=== PATIENT | male | born 1935 | race Caucasian/White ===

== ENCOUNTER 2018-01-06 19:16 | Emergency (ER) | payer MEDICARE, OTHER ==
[2018-01-06] MEDS ORDERED: LIDOCAINE 1%/EPINEPHRINE INJ 20 ML VIAL INJ ONE (19:43)
[2018-01-06] MEDS ORDERED: DIPH/PERTUSS(ACELL)/TETANUS VAC/PF 0.5 ML SYR (>=10YO) IM ONE (19:43)
--- NOTE | 2018-01-06 19:45 | ER Document Report ---
ED Medical Screen (RME) - General Chief Complaint: Fall Injury Stated Complaint: FALL Time Seen by Provider: 01/06/18 19:38 Notes: Patient is an 82-year-old male who tripped over his suitcase and hit the left side of his face and ear on a corner of the bed. He is on Plavix and a baby aspirin daily. Denies LOC. Tetanus is not UTD. PE: 3 cm linear laceration over left lateral eyebrow, EOMI, small left ear auricular hematoma I have greeted and performed a rapid initial assessment of this patient. A comprehensive ED assessment and evaluation of the patient, analysis of test results and completion of the medical decision making process will be conducted by additional ED providers. TRAVEL OUTSIDE OF THE [place] IN LAST 30 DAYS: No - Related Data Allergies/Adverse Reactions: No Known Allergies Allergy (Unverified 01/06/18 19:19) Physical Exam - Vital signs Vitals: Temp Pulse Resp BP Pulse Ox 98.1 F 66 16 151/93 H 96 01/06/18 19:33 01/06/18 19:33 01/06/18 19:33 01/06/18 19:33 01/06/18 19:33 Course - Vital Signs Vital signs: Temp Pulse Resp BP Pulse Ox 98.1 F 66 16 151/93 H 96 01/06/18 19:33 01/06/18 19:33 01/06/18 19:33 01/06/18 19:33 01/06/18 19:33 Doctor's Discharge - Discharge Referrals: MARGAUX VANESSA MD [Primary Care Provider] - Follow up as needed
--- NOTE | 2018-01-06 20:44 | RADIOLOGY REPORT (SQ) ---
EXAM DESCRIPTION: CT FACIAL AREA WITHOUT COMPLETED DATE/TIME: 01/06/2018 8:19 pm REASON FOR STUDY: fall, head and facial injury, on ASA and Plavix COMPARISON: None. TECHNIQUE: Noncontrasted images through the facial bones and orbits windowed for bone and soft tissu e. Additional coronal and sagittal reconstructed images reviewed. All images stored on PACS. All CT scanners at this facility use dose modulation, iterative reconstruction, and/or weight based d osing when appropriate to reduce radiation dose to as low as reasonably achievable (ALARA). [facility]: Dose Right [facility]: CareDose [facility]: Dose Right [facility]: Teradose 4D [facility]: Smart [employer] RADIATION DOSE: CT Rad equipment meets quality standard of care and radiation dose reduction techniq ues were employed. CTDIvol: 30.4 mGy. DLP: 566 mGy-cm. mGy. LIMITATIONS: None. FINDINGS: FACIAL BONES: No fracture or bone lesion. ORBITS: Intact. No fracture. Symmetric intact globes and retroorbital soft tissues. PARANASAL SINUSES: Chronic pansinusitis. SOFT TISSUES: Left periorbital hematoma. INFERIOR BRAIN: See separate report. OTHER: No other significant finding. IMPRESSION: No fracture. TECHNICAL DOCUMENTATION: JOB ID: [id number] Quality ID # [id number]: Final reports with documentation of one or more dose reduction techniques (e.g., Au tomated exposure control, adjustment of the mA and/or kV according to patient size, use of iterative reconstruction technique) 2010 [employer]- All Rights Reserved Reading location - IP/workstation name: [email or web address]
--- NOTE | 2018-01-06 20:45 | RADIOLOGY REPORT (SQ) ---
EXAM DESCRIPTION: CT HEAD WITHOUT COMPLETED DATE/TIME: 01/06/2018 8:20 pm REASON FOR STUDY: fall, head and facial injury, on ASA and Plavix COMPARISON: None. TECHNIQUE: Axial images acquired through the brain without intravenous contrast. Images reviewed wi th bone, brain and subdural windows. Additional sagittal and coronal reconstructions were generated. Images stored on PACS. All CT scanners at this facility use dose modulation, iterative reconstruction, and/or weight based d osing when appropriate to reduce radiation dose to as low as reasonably achievable (ALARA). [facility]: Dose Right [facility]: CareDose [facility]: Dose Right [facility]: Teradose 4D [facility]: Smart [employer] RADIATION DOSE: CT Rad equipment meets quality standard of care and radiation dose reduction techniq ues were employed. CTDIvol: 53.2 mGy. DLP: 937 mGy-cm. mGy. LIMITATIONS: None. FINDINGS: VENTRICLES: Prominent. CEREBRUM: No masses. No hemorrhage. No midline shift. Areas of low density in the white matter mos t likely due to chronic micro-vascular ischemic change. No evidence for acute infarction. CEREBELLUM: No masses. No hemorrhage. No alteration of density. No evidence for acute infarction. EXTRAAXIAL SPACES: Mild age-related involutional change. No fluid collections. No masses. ORBITS AND GLOBE: No intra- or extraconal masses. Normal contour of globe without masses. CALVARIUM: No fracture. PARANASAL SINUSES: See separate report. SOFT TISSUES: Left periorbital hematoma. OTHER: No other significant finding. IMPRESSION: No acute findings in the brain. EVIDENCE OF ACUTE STROKE: NO. TECHNICAL DOCUMENTATION: JOB ID: [id number] Quality ID # [id number]: Final reports with documentation of one or more dose reduction techniques (e.g., Au tomated exposure control, adjustment of the mA and/or kV according to patient size, use of iterative reconstruction technique) 2010 [employer]- All Rights Reserved Reading location - IP/workstation name: [email or web address]
--- NOTE | 2018-01-06 20:49 | ER Document Report ---
ED Fall - General Chief Complaint: Fall Injury Stated Complaint: FALL Time Seen by Provider: 01/06/18 19:38 Notes: Patient is an 82-year-old male that comes to the emergency department for chief complaint of a fall, he states he was carrying a suitcase, his foot caught side of his bed in the bedroom and he fell hitting his face on the side of the bed on the left side. He denies any headache at this time, he denies vomiting, he denies focal numbness or weakness, he denies being knocked out. He is on Plavix and aspirin. His tetanus is not up-to-date. He denies any other injuries or areas of pain. TRAVEL OUTSIDE OF THE [place] IN LAST 30 DAYS: No - Related data Allergies/Adverse Reactions: No Known Allergies Allergy (Unverified 01/06/18 19:19) Past Medical History - General Information source: Patient - Social History Smoking Status: Former Smoker Chew tobacco use (# tins/day): No Frequency of alcohol use: Occasional Drug Abuse: None Lives with: Family Family History: Reviewed & Not Pertinent Patient has suicidal ideation: No Patient has homicidal ideation: No Renal/ Medical History: Denies: Hx Peritoneal Dialysis - Immunizations Immunizations up to date: No Hx Diphtheria, Pertussis, Tetanus Vaccination: Yes Review of Systems - Review of Systems Constitutional: No symptoms reported EENT: No symptoms reported Cardiovascular: No symptoms reported Respiratory: No symptoms reported Gastrointestinal: No symptoms reported Genitourinary: No symptoms reported Male Genitourinary: No symptoms reported Musculoskeletal: See HPI Skin: See HPI Hematologic/Lymphatic: No symptoms reported Neurological/Psychological: No symptoms reported Physical Exam - Vital signs Vitals: Temp Pulse Resp BP Pulse Ox 98.1 F 66 16 151/93 H 96 01/06/18 19:33 01/06/18 19:33 01/06/18 19:33 01/06/18 19:33 01/06/18 19:33 - Notes Notes: GENERAL: Alert, interacts well. No acute distress. HEAD: Normocephalic. Ecchymosis with mild swelling surrounding the left orbit, vertical laceration approximately 3 cm in size over the left side of face lateral to the eyebrow. EYES: Pupils equal, round, and reactive to light. Extraocular movements intact. ENT: Oral mucosa moist, tongue midline. Nares patent, no nasal septal hematoma, TM's intact. Ecchymosis at the helix and antihelix with slight swelling suggesting auricular hematoma. Remaining ear and ENT exam is unremarkable. NECK: Full range of motion. Supple. Trachea midline. LUNGS: Clear to auscultation bilaterally, no wheezes, rales, or rhonchi. No respiratory distress. HEART: Regular rate and rhythm. No murmur ABDOMEN: Soft, non-tender. Non-distended. Bowel sounds present in all 4 quadrants. EXTREMITIES: Moves all 4 extremities spontaneously. No edema, normal radial and dorsalis pedis pulses bilaterally. No cyanosis. BACK: no cervical, thoracic, lumbar midline tenderness. No saddle anesthesia, normal distal neurovascular exam. NEUROLOGICAL: Alert and oriented x3. Normal speech. [cranial nerves II through XII grossly intact]. PSYCH: Normal affect, normal mood. SKIN: Warm, dry, normal turgor. No rashes or lesions noted. Course - Re-evaluation Re-evalutation: CAT scan of the head and face with no acute findings. Patient periorbital ecchymosis and laceration, also has small early appearance of auricular hematoma. Wound repaired, discussed with patient the findings of the imaging, discussed head injury precautions, discussed wound care. Also discussed options with hematoma, this was discussed with Dr. Bob, patient will follow up with ENT for additional management of this cluster. Patient states understanding and agreement with plan. - Vital Signs Vital signs: Temp Pulse Resp BP Pulse Ox 98.0 F 77 16 167/78 H 96 01/06/18 21:30 01/06/18 21:30 01/06/18 21:30 01/06/18 21:30 01/06/18 21:30 Procedures - Laceration/Wound Repair Left lateral face Wound length (cm): 3 Wound's Depth, Shape: Irregular Laceration pre-procedure: Sterile PPE donned, Sterile drapes applied, Shur- Clens applied Anesthetic type: 1% Lidocaine Volume Anesthetic (mLs): 4 Wound explored: Clean, No foreign body removed Wound Repaired With: Sutures Suture Size/Type: 5:0, Prolene Number of Sutures: 5 Layer Closure?: No Post-procedure wound care: Sterile dressing applied Post-procedure NV exam normal: Yes Complications: No Discharge - Discharge Clinical Impression: Fall Qualifiers: Encounter type: initial encounter Qualified Code(s): W19.XXXA - Unspecified fall, initial encounter Head injury Qualifiers: Encounter type: initial encounter Qualified Code(s): S09.90XA - Unspecified injury of head, initial encounter Forehead laceration Qualifiers: Encounter type: initial encounter Qualified Code(s): S01.81XA - Laceration without foreign body of other part of head, initial encounter Contusion of ear Qualifiers: Encounter type: initial encounter Laterality: left Qualified Code(s): S00.432A - Contusion of left ear, initial encounter Condition: Stable Disposition: HOME, SELF-CARE Additional Instructions: The CAT scans show no concerning abnormality. The swelling of your face and bruising of her face will slowly resolve with time. The sutures need to come out in about 7 days at a medical facility. Keep wound clean, clean with soap and water, dab dry, avoid soaking. You can apply a thin film of topical antibiotic with dressing over the area. The bruising of your ear can develop into an auricular hematoma which can be permanent, follow-up with the ENT referral in the next several days to have this evaluated and treated. Return for any concerning symptoms including confusion, passing out, vomiting, severe headache, or any other concerning or worsening symptoms. See additional details below. Head Injury Precautions At this point, there is no evidence that your head injury is serious. Observation is necessary, however. Take only clear liquids for the first few hours, unless told otherwise by the doctor. If no pain medication was prescribed, you may take acetaminophen according to the directions on the bottle. Do not take any medication that may alter your level of alertness (unless you've discussed it with the doctor first) . Limit activity for the first 24 hours. Bed rest is best. During the first 24 hours, check to see approximately every two to three hours that the patient is easily arousable, responds normally, and can perform common tasks such as walking without difficulty. Contact your doctor or go to the hospital if any of the following things occur: Persistent vomiting, difficulty in arousing the patient, worsening or continued headache, or failure to improve as expected. Head injuries can cause symptoms that persist for a few days or even a few weeks. Referrals: [facility] [Provider Group] - Follow up in 3-5 days
[2018-01-06 21:38] VITALS: BP 167/78
== END 2018-01-06 21:37 | disposition home or self-care (01) ==
LOC: ER 19:16
DX: S01.81XA Laceration without foreign body of other part of head, initial encounter (principal); S01.112A Laceration without foreign body of left eyelid and periocular area, initial encounter; R22.0 Localized swelling, mass and lump, head; W01.190A Fall on same level from slipping, tripping and stumbling with subsequent striking against furniture, initial encounter; Z79.02 Long term (current) use of antithrombotics/antiplatelets; Z79.82 Long term (current) use of aspirin; Z87.891 Personal history of nicotine dependence
CPT/HCPCS: 99283; 90471; 70450; 70486; 90715; 12013; J3490

== ENCOUNTER 2018-06-19 10:24 | Emergency (ER) | payer MEDICARE, OTHER ==
[2018-06-19 11:07] LABS: ABSOLUTE EOSINOPHILS # (AUTO) 0.2 10^3/uL (0.0-0.6); ABSOLUTE LYMPHOCYTES (AUTO) 0.8 10^3/uL (0.5-4.7); ABSOLUTE MONOCYTES (AUTO) 0.6 10^3/uL (0.1-1.4); ABSOLUTE NEUT (AUTO) 5.4 10^3/uL (1.7-8.2); BASOPHILS % (AUTO) 0.3 % (0-2); EOSINOPHILS % (AUTO) 2.5 % (0-6); HEMATOCRIT 34.7 % (37.9-51.0); HEMOGLOBIN 11.6 g/dL (13.5-17.0); LYMPHOCYTES % (AUTO) 11.4 % (13-45); MEAN CORPUSCULAR HEMOGLOBIN 29.2 pg (27.0-33.4); MEAN CORPUSCULAR HGB CONC 33.5 g/dL (32.0-36.0); MEAN CORPUSCULAR VOLUME 87 fl (80-97); PLATELET COUNT 138 10^3/uL (150-450); RED BLOOD COUNT 3.98 10^6/uL (4.35-5.55); RED CELL DISTRIBUTION WIDTH 15.4 % (11.5-14.0); SEGMENTED NEUTROPHILS % (AUTO) 77.8 % (42-78); TOTAL CELLS COUNTED % (AUTO) 100 %; WHITE BLOOD COUNT 6.9 10^3/uL (4.0-10.5)
[2018-06-19 11:12] LABS: INTERNATIONAL RATION (INR) 1.03
[2018-06-19 11:13] LABS: PARTIAL THROMBOPLASTIN TIME 30.8 SEC (23.5-35.8)
[2018-06-19 11:20] LABS: APPEARANCE,URINE SLIGHTLY-CLOUDY; BILIRUBIN,URINE NEGATIVE (NEGATIVE); COLOR,URINE YELLOW; GLUCOSE, URINE NEGATIVE (NEGATIVE); KETONES,URINE NEGATIVE (NEGATIVE); LEUKOCYTE ESTERASE,URINE NEGATIVE (NEGATIVE); NITRITE,URINE NEGATIVE (NEGATIVE); PROTEIN,URINE NEGATIVE (NEGATIVE); URINE SPECIFIC GRAVITY 1.009; UROBILINOGEN,URINE NEGATIVE mg/dL (<2.0)
[2018-06-19 11:24] LABS: ALANINE AMINOTRANSFERASE 17 U/L (21-72); ALBUMIN 3.9 g/dL (3.5-5.0); ALKALINE PHOSPHATASE 60 U/L (38-126); ANION GAP 14 (5-19); ASPARTATE AMINO TRANSFERASE 22 U/L (17-59); BILIRUBIN,DIRECT 0.3 mg/dL (0.0-0.4); BILIRUBIN,TOTAL 0.7 mg/dL (0.2-1.3); BLOOD UREA NITROGEN 18 mg/dL (7-20); CALCIUM 8.9 mg/dL (8.4-10.2); CARBON DIOXIDE 26 mmol/L (22-30); CHLORIDE 104 mmol/L (98-107); CREATINE KINASE 61 U/L (55-170); GLUCOSE 180 mg/dL (75-110); POTASSIUM 4.2 mmol/L (3.6-5.0); SODIUM 143.7 mmol/L (137-145); TOTAL PROTEIN 6.6 g/dL (6.3-8.2)
--- NOTE | 2018-06-19 11:34 | RADIOLOGY REPORT (SQ) ---
EXAM DESCRIPTION: CT HEAD WITHOUT COMPLETED DATE/TIME: 06/19/2018 11:11 am REASON FOR STUDY: fall on anitcoagulants COMPARISON: 12/23/2017 TECHNIQUE: Axial images acquired through the brain without intravenous contrast. Images reviewed wi th bone, brain and subdural windows. Additional sagittal and coronal reconstructions were generated. Images stored on PACS. All CT scanners at this facility use dose modulation, iterative reconstruction, and/or weight based d osing when appropriate to reduce radiation dose to as low as reasonably achievable (ALARA). [facility]: Dose Right [facility]: CareDose [facility]: Dose Right [facility]: Teradose 4D [facility]: Smart [employer] RADIATION DOSE: CT Rad equipment meets quality standard of care and radiation dose reduction techniq ues were employed. CTDIvol: 53.2 mGy. DLP: 1044 mGy-cm. mGy. LIMITATIONS: None. FINDINGS: VENTRICLES: Normal size and contour. CEREBRUM: No masses. Mixed attenuation parafalcine subdural hematoma extends into the left tentorium cerebelli and over the posterior left frontal lobe. This measures approximately 13 mm in maximum tra nsverse dimension. No midline shift. No evidence for acute infarction. Normal madrigal/white matter dif ferentiation. No areas of low density in the white matter. CEREBELLUM: No masses. No hemorrhage. No alteration of density. No evidence for acute infarction. EXTRAAXIAL SPACES: No fluid collections. No masses. ORBITS AND GLOBE: No intra- or extraconal masses. Normal contour of globe without masses. CALVARIUM: No fracture. PARANASAL SINUSES: Near complete opacification of the visualized maxillary sinuses. Mucoperiosteal t hickening of the ethmoid air cells. SOFT TISSUES: No mass or hematoma. OTHER: No other significant finding. IMPRESSION: Acute parafalcine subdural hematoma measuring 13 mm in maximum transverse diameter exten ding into the left tentorium cerebelli. No midline shift. No hydrocephalus. EVIDENCE OF ACUTE STROKE: NO. COMMENT: This report was called to Dr. Cornejo At11:25 on 06/19/2018. Quality ID # 436: Final reports with documentation of one or more dose reduction techniques (e.g., Au tomated exposure control, adjustment of the mA and/or kV according to patient size, use of iterative reconstruction technique) TECHNICAL DOCUMENTATION: JOB ID: [id number]- All Rights Reserved Reading location - IP/workstation name: [email or web address]
--- NOTE | 2018-06-19 12:15 | ER Document Report ---
ED Fall - General Chief Complaint: Altered Mental Status Stated Complaint: FALL HEAD PAIN Time Seen by Provider: 06/19/18 11:11 Notes: Patient is here to be evaluated for a fall in which he hit his head and has headache now. Patient tells me that he fell twice on , the first time occurred outside and he tripped and fell on some steps. He remembers everything that happens. Was not unconscious. Did sustain a skin tear just below the left knee on the anterior proximal ramsay. Patient lives alone. He was trying to put a bandage on his skin tear of the left leg Th afternoon and he lost his balance and tripped in the bathroom and hit his right occipital head on the shower. He was never unconscious. Remembers everything that happens. He actually went out to dinner with some friends that night. Patient says that yesterday he felt "woozy". Today, he still feels a confused and woozy and has a dull headache. During his history, patient repeatedly says "I don't care", more like a speech problem than an expression of his actual feelings. Seems to have difficulty remembering what he wants to say. Thursday, yesterday, patient obtained food in some manner, but he does not remember how, but then this morning, his neighbor checked on him and did not think he was doing well and called the squad to bring him here. Patient is on Plavix, but no other blood thinners. Patient also has an injury to the left foot which is swollen and bruised looking. Is able to put weight on it, however. TRAVEL OUTSIDE OF THE [place] IN LAST 30 DAYS: No - Related data Allergies/Adverse Reactions: dextrose 5 % in water [From Zyvox] Allergy (Verified 06/19/18 10:50) linezolid [From Zyvox] Allergy (Verified 06/19/18 10:50) CIPRO Allergy (Uncoded 06/19/18 10:50) Past Medical History - Social History Smoking Status: Unknown if Ever Smoked Family History: Reviewed & Not Pertinent Patient has suicidal ideation: No Patient has homicidal ideation: No - Past Medical History Cardiac Medical History: Reports: Hx Hypertension Endocrine Medical History: Reports: Hx Diabetes Mellitus Type 2 - Immunizations Immunizations up to date: No Hx Diphtheria, Pertussis, Tetanus Vaccination: Yes Review of Systems - Review of Systems Notes: REVIEW OF SYSTEMS: CONSTITUTIONAL : Denies fever. EENT: Denies eye, ear, nose or mouth or throat pain or other symptoms. CARDIOVASCULAR: Denies chest pain. RESPIRATORY: Denies cough, chest congestion, or shortness of breath. GASTROINTESTINAL: Denies abdominal pain or nausea, vomiting, or diarrhea. GENITOURINARY: Denies difficulty or painful urinating, urinary frequency, blood in urine. MUSCULOSKELETAL: Denies back or neck pain. Denies joint pain or swelling. Complains of pain and swelling and bruising of his left foot. SKIN: Denies rash or skin lesions. NEUROLOGICAL: Denies LOC or altered mental status, although he says he feels confused and has difficulty speaking. Has a dull headache. Denies sensory loss or motor deficits. ALL OTHER SYSTEMS REVIEWED AND NEGATIVE. Physical Exam - Vital signs Vitals: Pulse Ox 97 06/19/18 10:32 Interpretation: Other - Blood pressures initially in the 170 systolic area. - Notes Notes: PHYSICAL EXAMINATION: GENERAL: Well-appearing, in no acute distress. HEAD: Atraumatic, normocephalic. No cranial scalp hematomas. EYES: Pupils equal round and reactive to light, extraocular movements intact. ENT: oropharynx clear without exudates. Moist mucous membranes. NECK: Normal range of motion, supple. LUNGS: Breath sounds clear and equal bilaterally. HEART: Regular rate and rhythm without murmurs. ABDOMEN: Soft, nontender. No guarding or rebound. No masses. BACK: No tenderness throughout entire back. EXTREMITIES: Patient has diffuse swelling of the left foot with ecchymosis present. Ankle stable. Otherwise, normal range of motion without pain. NEUROLOGICAL: Patient is awake and alert and, for the most part, answers questions appropriately. He follows commands appropriately. At times, he repeatedly says "I don't care, I don't tear, I don't care, . . ." Otherwise, intact sensory, motor, and reflex exams. Awake, alert, and oriented x3. Cranial nerves normal. PSYCH: Normal mood, normal affect. SKIN: Warm, dry, no rashes. Abrasion and skin tear of the anterior proximal left lower leg, just below the patella over the tibial plateau. Full range of motion of that knee. Course - Re-evaluation Re-evalutation: 06/19/18 13:45 A short while ago, nurses report that the patient is doing worse, more confused and less responsive. However, I did assess the patient now and he seems to be the same neurologically as before. He is easily awake able. Seems to understand what I am saying and for the most part can carry on a conversation although he has some difficulty thinking of the right words. I spoken with , neurosurgery at [facility], and he says they do not have beds available to take this patient. He feels the patient will only require monitoring and not expected to require a neurosurgical procedure. I will try looking for another facility somewhere else. He did recommend starting Keppra and the patient has been given 1000 mg of Keppra. Patient's current systolic blood pressure is 166, which is approximately the target value for systolic blood pressure that was recommended. Patient's x-ray of his foot shows no fractures. Ant Cornejo MD 06/19/18 15:03 At the family's request, I contacted trauma [place] [facility] [place]. Raza, who accepted the patient in transfer and transport will be arranged. Ant Cornejo MD 06/19/18 21:16 Just got a call from [facility] to now have a bed for this patient. I think will be more convenient for the family for this patient to be admitted at [facility] then at [facility] [place]. I very much appreciate [facility] [place] being available and willing to take the patient. - Vital Signs Vital signs: Temp Pulse Resp BP Pulse Ox 98.1 F 73 17 168/64 H 95 06/19/18 18:18 06/19/18 18:18 06/19/18 19:01 06/19/18 19:01 06/19/18 19:01 - Laboratory Result Diagrams: 06/19/18 08:44 06/19/18 08:44 Laboratory results interpreted by me: 06/19/18 06/19/18 08:44 08:44 RBC 3.98 L Hgb 11.6 L Hct 34.7 L RDW 15.4 H Plt Count 138 L Lymphocytes % 11.4 L Glucose 180 H ALT 17 L - Diagnostic Test Radiology reviewed: Image reviewed, Reports reviewed - CT scan shows a parafalcine subdural hematoma with maximum width of 13 mm. Discharge - Discharge Clinical Impression: Subdural hematoma Condition: Stable Disposition: [facility] [place], [place] Referrals: MARGAUX VANESSA MD [Primary Care Provider] - Follow up as needed
[2018-06-19 12:28] LABS: URINE AMPHETAMINES SCREEN NEGATIVE; URINE BARBITURATES SCREEN NEGATIVE; URINE BENZODIAZEPINES SCREEN NEGATIVE; URINE MARIJUANA (THC) SCREEN NEGATIVE; URINE METHADONE SCREEN NEGATIVE; URINE PHENCYCLIDINE SCREEN NEGATIVE
[2018-06-19 12:29] LABS: URINE COCAINE SCREEN NEGATIVE
--- NOTE | 2018-06-19 13:02 | RADIOLOGY REPORT (SQ) ---
EXAM DESCRIPTION: FOOT LEFT 2 VIEWS COMPLETED DATE/TIME: 06/19/2018 12:21 pm REASON FOR STUDY: Fell and injured left foot 2 days ago COMPARISON: None. NUMBER OF VIEWS: Two views. TECHNIQUE: AP and lateral radiographic images acquired of the left foot. LIMITATIONS: None. FINDINGS: MINERALIZATION: Osteopenia. BONES: No acute fracture or dislocation. No worrisome bone lesions. Tiny plantar calcaneal enthesop hyte. Minimal lateral deviation of the 5th metatarsophalangeal joint, suggestive of a bunionette. JOINTS: No effusions. SOFT TISSUES: Mild soft tissue swelling of the forefoot. No radiopaque foreign body. OTHER: No other significant finding. IMPRESSION: Mild soft tissue swelling of forefoot. No acute fracture or dislocation. TECHNICAL DOCUMENTATION: JOB ID: [id number] [employer]- All Rights Reserved Reading location - IP/workstation name: [email or web address]
[2018-06-19] MEDS ORDERED: LEVETIRACETAM 1000 MG/NACL-ISO 1,000 MG/100 ML RTUPB IV ONE (13:14)
[2018-06-19] MEDS ORDERED: ACETAMINOPHEN 325 MG TABLET PO ONE (14:50)
[2018-06-19] MEDS ORDERED: ACETAMINOPHEN 325 MG TABLET ONE (14:52)
--- NOTE | 2018-06-19 22:31 | EKG REPORT ---
SEVERITY:- ABNORMAL ECG - SINUS RHYTHM NONSPECIFIC T ABNORMALITIES, LATERAL LEADS : Confirmed by: Kevon Enriquez MD 19-Jun-2018 22:30:05
[2018-06-19 22:59] VITALS: BP 151/83
== END 2018-06-19 23:00 | disposition short-term general hospital (02) ==
LOC: ER 10:24
DX: S06.5X0A Traumatic subdural hemorrhage without loss of consciousness, initial encounter (principal); S81.812A Laceration without foreign body, left lower leg, initial encounter; S90.32XA Contusion of left foot, initial encounter; W19.XXXA Unspecified fall, initial encounter; R41.0 Disorientation, unspecified; R51 Headache; I10 Essential (primary) hypertension; E11.9 Type 2 diabetes mellitus without complications; Z79.02 Long term (current) use of antithrombotics/antiplatelets; Z88.1 Allergy status to other antibiotic agents
CPT/HCPCS: 93005; 99285; 96365; 36415; 80307 ×2; 82550; 85025; 85610; 85730; 80053; 81001; 84484; 73620; 70450; 93010; A9270; J1953

== ENCOUNTER → 2018-08-11 | Outpatient (CLI) | payer MEDICARE, OTHER ==
--- NOTE | 2018-08-11 09:38 | RADIOLOGY REPORT (SQ) ---
EXAM DESCRIPTION: CHEST PA/LATERAL COMPLETED DATE/TIME: 08/11/2018 9:00 am REASON FOR STUDY: COUGH COMPARISON: 10/13/2008 EXAM PARAMETERS: NUMBER OF VIEWS: two views TECHNIQUE: Digital Frontal and Lateral radiographic views of the chest acquired. RADIATION DOSE: NA LIMITATIONS: none FINDINGS: LUNGS AND PLEURA: Surgical clips post right upper lobectomy. Mild chronic increased inter stitial markings at the right lung base, stable. No acute infiltrates. No pleural effusion or pneumothorax. MEDIASTINUM AND HILAR STRUCTURES: No masses or contour abnormalities. HEART AND VASCULAR STRUCTURES: Old sternotomy for CABG BONES: Right shoulder rotator cuff tack HARDWARE: None in the chest. OTHER: No other significant finding. 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 No acute findings TECHNICAL DOCUMENTATION: JOB ID: [id number] [employer]- All Rights Reserved Reading location - IP/workstation name: [email or web address]
== END ==
LOC: OD 08:36
PROVIDERS: ATTEND Nurse Practitioner Family
DX: R05 Cough (principal)
CPT/HCPCS: 71046

== ENCOUNTER → 2018-11-09 | Outpatient (CLI) | payer MEDICARE, OTHER ==
--- NOTE | 2018-11-09 10:27 | RADIOLOGY REPORT (SQ) ---
EXAM DESCRIPTION: CHEST PA/LATERAL COMPLETED DATE/TIME: 11/09/2018 9:50 am REASON FOR STUDY: WHEEZING COMPARISON: 08/11/2018 EXAM PARAMETERS: NUMBER OF VIEWS: two views TECHNIQUE: Digital Frontal and Lateral radiographic views of the chest acquired. RADIATION DOSE: NA LIMITATIONS: none FINDINGS: LUNGS AND PLEURA: Stable post surgical changes in the right hemithorax. Mixed interstiti al and airspace disease in the right lung with sparing of the upper portion of the lung. These findi ngs may represent chronic changes with acute superimposed infiltrates. The left lung remains clear. No pneumothorax or pleural effusion. MEDIASTINUM AND HILAR STRUCTURES: No masses or contour abnormalities. HEART AND VASCULAR STRUCTURES: Heart normal size. No evidence for failure. BONES: No acute findings. HARDWARE: Prior anterior median sternotomy and CABG. OTHER: Partially visualized hardware anterior fusion mid lower cervical spine. IMPRESSION: 1. Stable postsurgical changes in the right hemithorax since the prior study dated 08/11. 2. Chronic with new acute superimposed inflammatory changes in the right lung. These findings may r epresent infiltrates. TECHNICAL DOCUMENTATION: JOB ID: [id number] [employer]- All Rights Reserved Reading location - IP/workstation name: [email or web address]
== END ==
LOC: OD 09:27
PROVIDERS: ATTEND Nurse Practitioner Family
DX: R06.2 Wheezing (principal)
CPT/HCPCS: 71046

== ENCOUNTER → 2018-12-02 | Outpatient (CLI) | payer MEDICARE, OTHER ==
--- NOTE | 2018-12-02 14:03 | RADIOLOGY REPORT (SQ) ---
EXAM DESCRIPTION: CHEST 2 VIEWS COMPLETED DATE/TIME: 12/02/2018 1:43 pm REASON FOR STUDY: R91.1 SOLITARY PULMONARY NODULE COMPARISON: 11/09/2018 EXAM PARAMETERS: NUMBER OF VIEWS: two views TECHNIQUE: Digital Frontal and Lateral radiographic views of the chest acquired. RADIATION DOSE: NA LIMITATIONS: none FINDINGS: LUNGS AND PLEURA: Chronic interstitial changes on the right. No acute infiltrate, effusio n, or mass. MEDIASTINUM AND HILAR STRUCTURES: No masses or contour abnormalities. HEART AND VASCULAR STRUCTURES: Heart normal size. No evidence for failure. BONES: No acute findings. HARDWARE: Surgical clips. OTHER: No other significant finding. IMPRESSION: Chronic lung changes. TECHNICAL DOCUMENTATION: JOB ID: [id number] [employer]- All Rights Reserved Reading location - IP/workstation name: [email or web address]
== END ==
LOC: RAD 13:21
PROVIDERS: ATTEND Internal Medicine Critical Care Medicine
DX: R91.1 Solitary pulmonary nodule (principal); R91.8 Other nonspecific abnormal finding of lung field; Z87.01 Personal history of pneumonia (recurrent); Z85.828 Personal history of other malignant neoplasm of skin; Z85.46 Personal history of malignant neoplasm of prostate; Z87.891 Personal history of nicotine dependence
CPT/HCPCS: 71046

== ENCOUNTER → 2018-12-16 | Outpatient (CLI) | payer MEDICARE, OTHER ==
--- NOTE | 2018-12-16 14:53 | RADIOLOGY REPORT (SQ) ---
EXAM DESCRIPTION: CT CHEST WITHOUT COMPLETED DATE/TIME: 12/16/2018 2:08 pm REASON FOR STUDY: R91.1 SOLITARY PULMONARY NODULE R91.1 SOLITARY PULMONARY NODULE COMPARISON: Chest x-ray 12/02/2018 TECHNIQUE: CT scan performed of the chest without intravenous contrast. Images reviewed with lung, soft tissue and bone windows. Reconstructed coronal and sagittal MPR images reviewed. All images st ored on PACS. All CT scanners at this facility use dose modulation, iterative reconstruction, and/or weight based d osing when appropriate to reduce radiation dose to as low as reasonably achievable (ALARA). [facility]: Dose Right [facility]: CareDose [facility]: Dose Right [facility]: Teradose 4D [facility]: [employer] RADIATION DOSE: CT Rad equipment meets quality standard of care and radiation dose reduction techniq ues were employed. CTDIvol: 10.3 mGy. DLP: 391 mGy-cm. mGy. LIMITATIONS: No technical limitations. FINDINGS: LUNGS AND PLEURA: There is a 3 cm there is a thin walled irregular multilocular cystic are a in the right lung seen best on image 30. There is mild parenchymal opacification just inferior and lateral to this cystic area. There is hazy opacification in the right lower lobe. No solid mass is seen. The left lung is normal. HILAR AND MEDIASTINAL STRUCTURES: No identified masses or abnormal nodes. No obvious aneurysm. HEART AND VASCULAR STRUCTURES: No aneurysm. No pericardial effusion. CABG. UPPER ABDOMEN: No significant findings. Limited exam. THYROID AND OTHER SOFT TISSUES: No masses. No adenopathy. BONES: No significant finding. HARDWARE: Sternotomy wires. OTHER: No other significant findings. IMPRESSION: There is a cystic lesion in the right upper lobe as described above. There are chronic changes in the right lung possibly suggesting radiation change. No pulmonary mass is seen. TECHNICAL DOCUMENTATION: JOB ID: [id number] Quality ID # [id number]: Final reports with documentation of one or more dose reduction techniques (e.g., Au tomated exposure control, adjustment of the mA and/or kV according to patient size, use of iterative reconstruction technique) 2010 [employer]- All Rights Reserved Reading location - IP/workstation name: [email or web address]
== END ==
LOC: RAD 13:42
PROVIDERS: ATTEND Internal Medicine Critical Care Medicine
DX: R91.1 Solitary pulmonary nodule (principal); R91.8 Other nonspecific abnormal finding of lung field
CPT/HCPCS: 71250